=== PATIENT | female | born 1965 | race Caucasian/White ===

== ENCOUNTER 2021-03-18 08:11 | Emergency (ER) | payer BC, SELFPAY ==
[2021-03-18 08:23] VITALS: BP 139/84; PULSE 79; RESP 16; TEMP 36.2; O2SAT 99
--- NOTE | 2021-03-18 08:55 | ED.DENTAL ---
HPI - Dental/Oral General Chief complaint: Dental/Oral Stated complaint: Tooth Pain Time Seen by Provider: 03/18/21 08:41 Source: patient and RN notes reviewed Mode of arrival: ambulatory Limitations: no limitations History of Present Illness HPI Narrative: Patient presents today complaining of left lower dental pain. States it started with some tooth sensitivity 2 days ago and started with some severe pain at 2:00 this morning. Patient does have a crown on this tooth, but believes she may need a root canal. Patient does have a dentist at [facility] in [place]. She describes pain as throbbing and currently rates it 08/29. MD Complaint: tooth pain Related Data Home Medications Medication Instructions Recorded Confirmed atorvastatin 40 mg PO DAILY 03/18/21 03/18/21 levothyroxine 100 mcg PO DAILY 03/18/21 03/18/21 lisinopril-hydrochlorothiazide 1 tablet PO DAILY 03/18/21 03/18/21 sertraline 25 mg PO DAILY 03/18/21 03/18/21 Allergies Allergy/AdvReac Type Severity Reaction Status Date / Time amoxicillin Allergy Hives Verified 03/18/21 08:46 Review of Systems Review of Systems: Narrative: CONSTITUTIONAL: Denies body aches, fever, chills, or sweats. EYES: Denies visual changes, redness, or discharge. ENT: Denies rhinorrhea, congestion, sore throat, or otalgia.+ Dental pain CARDIOVASCULAR: Denies chest pain, palpitations, or edema. RESPIRATORY: Denies cough or dyspnea. GASTROINTESTINAL: Denies abdominal pain, nausea, vomiting, or diarrhea. GENITOURINARY: Denies dysuria or hematuria. SKIN: Denies rash, itching, or wounds. MUSCULOSKELETAL: Denies back pain, joint pain, or myalgia. NEUROLOGIC: Denies headache, numbness, tingling, or weakness. PSYCH: Denies depression or anxiety. [facility] Past Medical History Medical History (Updated 03/18/21 @ 09:00 by Demetra Christianson, [employer], ) Hypothyroidism Comments At time of signature, I have reviewed and agree with nursing past medical, surgical, social and family history unless otherwise noted. Please see nursing chart for further information. There is no relevant family history pertinent to the presenting complaint Exam Narrative: Exam Narrative: GENERAL: Well-appearing, well-nourished, and in no acute distress. HEAD: Normocephalic, atraumatic. EYES: EOMI. No redness or drainage. Conjunctivae normal. ENT: Mucous membranes pink and moist. Throat normal. Tooth #18 with a crown. There is mild swelling around the gingiva. No erythema. No facial swelling noted. Uvula midline. NECK: Normal AROM. Supple. No lymphadenopathy. CHEST: No respiratory distress. EXTREMITIES: Normal range of motion. No edema. SKIN: Warm, dry, no rash. Capillary refill normal. Normal skin turgor. NEURO: No focal deficits. Alert and oriented x3. Gait steady. PSYCH: Normal affect. No signs of depression or anxiety. Course Vital Signs Vital signs: Vital Signs Temperature 97.2 F L 03/18/21 08:23 Pulse Rate 79 03/18/21 08:23 Respiratory Rate 16 03/18/21 08:23 Blood Pressure 139/84 03/18/21 08:23 Pulse Oximetry 99 03/18/21 08:23 Temperature 97.2 F L 03/18/21 08:23 Pulse Rate 79 03/18/21 08:23 Respiratory Rate 16 03/18/21 08:23 Blood Pressure 139/84 03/18/21 08:23 Pulse Oximetry 99 03/18/21 08:23 Reviewed. Pt has been instructed to follow up with her PCP regarding her elevated blood pressure today. MDM - Dental/Oral Differential Diagnosis Differential diagnosis: Likely gingival abscess, dental caries, toothache, dental abscess and fracture of tooth Critical Care Time Critical Care Time Critical Care Time: No Discharge Plan Discharge Clinical Impression: Toothache Patient Disposition: Home, Self-Care Condition: Stable Instructions: Antibiotic Form, Toothache (ED) Additional Instructions: Please take the clindamycin as prescribed for your presumed dental infection. Please see your dentist as soon as possible for further evaluation
== END 2021-03-18 09:03 | disposition home or self-care (01) ==
PROVIDERS: Emergency Provider Nurse Practitioner
DX: K08.89 Other specified disorders of teeth and supporting structures (principal); E03.9 Hypothyroidism, unspecified
CPT/HCPCS: 99213; G0463

== ENCOUNTER 2021-03-18 20:08 | Emergency (ER) | payer BC, SELFPAY ==
[2021-03-18 20:11] VITALS: BP 169/93; PULSE 65; RESP 18; TEMP 36.3; O2SAT 100
--- NOTE | 2021-03-18 20:22 | PC.NURSE ---
Patient comes to the ED desk and states that she is going to leave the ED without being seen.
== END 2021-03-18 21:38 | disposition left against medical advice (07) ==
LOC: ANHED 20:40
DX: K08.89 Other specified disorders of teeth and supporting structures (principal)
CPT/HCPCS: 99199

== ENCOUNTER → 2021-12-06 09:12 | Outpatient (CLI) | payer BC, SELFPAY ==
--- NOTE | ~2021-12-06 | MR_ITS ---
EXAMINATION: MR shoulder LT wo con DATE: 12/06/2021 10:11 INDICATION: Left shoulder pain and limited range of motion. TECHNIQUE: Magnetic resonance imaging (MRI) of the left shoulder was performed without intravenous co ntrast. Sequences included axial PD-weighted FS FSE, coronal oblique PD-weighted FS FSE, coronal obli que T2-weighted FS FSE, sagittal PD-weighted FS FSE, and sagittal T1-weighted SE. COMPARISON: None. FINDINGS: Coracoacromial arch: The acromion undersurface is curved in morphology (type II). The coracoacromial ligament is normal. M ild acromioclavicular osteoarthritis with mild cystic change at the lateral head of the clavicle. Rotator cuff: The supraspinatus, infraspinatus and teres minor tendons are normal. And subscapularis tendinopathy w ithout discrete tear. Normal rotator cuff muscle bulk and signal. Biceps tendon, glenoid labrum and glenohumeral cartilage: Long head of the biceps tendon is normal. Normal anterosuperior sublingual foramen and medially curvi ng subtle labral sulcus with smooth margins at the base of the anterosuperior to superior glenoid lab rum. No labral tears. Glenohumeral cartilage is normal. Fluid: There is increased fluid in the long head biceps tendon sheath which is disproportionate to the physi ologic amount of fluid in the glenohumeral joint consistent with mild bicipital tenosynovitis. No loo se osteochondral bodies. Mild increased fluid signal in the subacromial/subdeltoid bursa consistent w ith mild bursitis. Bones: Normal marrow signal with no edema, fracture or abnormal marrow replacing process. IMPRESSION: 1. Mild subscapularis tendinopathy without discrete tear. 2. Mild acromioclavicular osteoarthritis and mild underlying subacromial/subdeltoid bursitis. 3. Mild bicipital tenosynovitis. Reviewed, dictated and finalized at location A. [employer] IMPRESSION: 1. Mild subscapularis tendinopathy without discrete tear. 2. Mild acromioclavicular osteoarthritis and mild underlying subacromial/subdel toid bursitis. 3. Mild bicipital tenosynovitis.
== END ==
PROVIDERS: Visit Provider Orthopaedic Surgery
DX: M25.512 Pain in left shoulder (principal); M75.82 Other shoulder lesions, left shoulder; M19.012 Primary osteoarthritis, left shoulder; M75.52 Bursitis of left shoulder; M65.812 Other synovitis and tenosynovitis, left shoulder
CPT/HCPCS: 73221